=== PATIENT | female | born 1970 | race African-American/Black ===

== ENCOUNTER 2017-06-19 09:17 | Inpatient (IN) | payer MEDICARE, MEDICAID ==
[2017-06-19] MEDS ORDERED: Acetaminophen 325 MG TAB ONE ×2 (09:34→13:06)
--- NOTE | 2017-06-19 09:53 | RAD ---
PORTABLE CHEST ONE VIEW: Date: 06-19-17 Time: 9:44 a.m. History: Cough, shortness of breath. Nausea, vomiting, sore throat. FINDINGS: Comparison is made with exam of 08-28-16. The heart size is normal. The lungs are expanded without focal areas of consolidation, pneumothorax, or effusions. Nodularity is stable. IMPRESSION: No acute process. POS: [facility]
[2017-06-19 10:14] LABS: #Basophils 0.1 thou/uL (0.0-0.2); #Monocytes 1.5 thou/uL (0.11-0.59); #Neutrophils 9.2 thou/uL (1.40-6.50); %Basophils 0.8 % (0.0-1.0); %Eosinophils 0.2 % (0.0-10.0); %Lymphocytes 21.6 % (21.0-51.0); %Monocytes 10.6 % (0.0-10.0); %Neutrophils 66.9 % (42.0-75.0); Hemoglobin 14.4 g/dL (12.0-16.0); Mean Corpuscular Hemoglobin 28.5 pg (27.0-31.0); Mean Platelet Volume 11.4 fL (7.4-10.4); Platelet Count 158 thou/uL (130-400); RBC Distribution Width 12.9 % (11.5-14.5); Red Blood Cell (RBC) Count 5.04 mill/uL (4.20-5.40); White Blood Cell (WBC) Count 13.7 thou/uL (4.8-10.8)
[2017-06-19 10:15] LABS: BHCG - Serum Negative (NEGATIVE); Pregs Control Background? CLEAR/WHITE (CLR/WHITE); Pregs Control Bar Appear? YES (CONTROL BAR)
[2017-06-19 10:35] LABS: CKMB 0.3 ng/mL (0-6.6); Troponin I Less than 0.010 ng/mL (< 0.028)
[2017-06-19] MEDS ORDERED: Magnesium Sulfate 2 GM/NS 0.9% 50 ML BAG ONE (10:36)
[2017-06-19] MEDS ORDERED: Dexamethasone 10 MG/ML VIAL ONE (10:36)
[2017-06-19] MEDS ORDERED: Albuterol Sulfate 2.5 mg/0.5 ml Neb ONE (10:39)
[2017-06-19 10:40] LABS: ALT (SGPT) 11 U/L (8-55); AST (SGOT) 24 U/L (5-34); Albumin 4.1 g/dL (3.5-5.0); Alkaline Phosphatase 56 U/L (40-150); Anion Gap 14 mmol/L (10-20); BUN (Urea Nitrogen) 8 mg/dL (7.0-18.7); Bilirubin, Total 0.7 mg/dL (0.2-1.2); CK (CPK) 69 U/L (29-168); Calc. Creatinine Clearance 0 mL/min (70-130); Calcium 9.7 mg/dL (7.8-10.44); Carbon Dioxide 22 mmol/L (22-29); Chloride 101 mmol/L (98-107); Estimated GFR-MDRD Greater than 90; Glucose 92 mg/dL (70-105); Lipase Less than 4 U/L (8-78); Potassium 4.1 mmol/L (3.5-5.1); Protein, Total 10.1 g/dL (6.0-8.3); Sodium 133 mmol/L (136-145)
[2017-06-19 10:54] LABS: Acetaminophen Less than 6.0 mcg/mL (10.0-30.0); Alcohol Less than 10 mg/dL (Less than 10); Salicylate Less than 8.0 mg/dL (15.0-30.0)
[2017-06-19 10:58] LABS: CO2 Tension 33.7 mmHg (35.0-45.0); pH, Arterial 7.46 (7.35-7.45)
[2017-06-19 10:59] LABS: Actual Bicarbonate (HCO3a) 23.5 mEq/L (22-26); Base Excess (BEa) 0.4 mEq/L (0 (+/-) 2.5); Calcium, Ionized 1.2 mmol/L (1.12-1.30); O2 Tension (PaO2) 74.3 mmHg (80.0-100.0)
[2017-06-19 11:00] LABS: ALV-art Gradient 35.195 (0-20); Analyzer IN Cardio ER; Puncture Site L.B.
[2017-06-19 11:37] LABS: Bilirubin Small (Negative); Blood, Urine Negative (Negative); Clarity CLOUDY (Clear); Glucose, Urine (Dipstick) Negative (Negative); Leukocyte Moderate (Negative); Nitrite Negative (Negative); Protein, Urine (Dipstick) 30 mg/dL (Neg-Trace); Specific Gravity, Urine 1.019 (1.002-1.036)
[2017-06-19 11:46] LABS: Amphetamine Not Detected (NotDetected); Barbiturates Screen Not Detected (NotDetected); Benzodiazepine Screen Not Detected (NotDetected); Cocaine Metabolite Screen Detected (NotDetected); Medtox Control Line Valid? VALID (VALID); Medtox Reader # READER 1; Methadone Not Detected (NotDetected); Methamphetamine Not Detected (NotDetected); Opiate Screen Not Detected (NotDetected); Oxycodone Screen Not Detected (NotDetected); Phencyclidine (PCP) Not Detected (NotDetected); THC/Cannabinoid Screen Detected (NotDetected); Tricyclic Screen Not Detected (NotDetected)
[2017-06-19 11:49] LABS: Bacteria/HPF None Seen HPF (None Seen); RBC/HPF 0-3 HPF (0-3); Squamous Epithelial 0-3 HPF (0-3); WBC/HPF 0-3 HPF (0-3)
[2017-06-19 11:50] LABS: Hyaline Casts/LPF NONE SEEN LPF (0-3 Hyaline)
[2017-06-19 13:46] LABS: Troponin I Less than 0.010 ng/mL (< 0.028)
[2017-06-19] MEDS ORDERED: Meropenem 1 GM in Sterile Water 20 ML SLOW IVP SCH ×2 (14:00→16:00)
[2017-06-19] MEDS ORDERED: Meropenem 1 GM in Sodium Chloride 0.9% 100 ML IVPB SCH (14:19)
[2017-06-19] MEDS ORDERED: Ondansetron HCl/PF 4 MG/2 ML Vial IVP PRN (14:19)
[2017-06-19] MEDS ORDERED: Promethazine HCl 25 MG SUPP PR PRN (14:19)
[2017-06-19] MEDS ORDERED: Famotidine 20 MG TAB PO PRN (14:19)
[2017-06-19] MEDS ORDERED: Lorazepam 2 MG/ML VIAL SLOW IVP PRN (14:19)
[2017-06-19] MEDS ORDERED: hydrALAZINE 20 MG/ML VIAL SLOW IVP PRN (14:19)
[2017-06-19] MEDS ORDERED: Vancomycin HCl 1 GM in Premix Bag 1 BAG IVPB SCH (15:00)
--- NOTE | 2017-06-19 18:39 | HP ---
CHIEF COMPLAINT: Shortness breath, cough, nausea, vomiting, diarrhea, and some dysuria. HISTORY OF PRESENT ILLNESS: This is a 47-year-old pleasant lady who was apparently in usual state of health, came into the hospital because she was having nausea, vomiting, diarrhea, sore throat, short ness of breath and some high grade fever. In the ER, her temperature was 102.8. She is also HIV pos itive. Because of all this, she is going to be admitted to the hospital for further evaluation and t reatment of this flu test was negative. Her white count was 13.7. Patient denies any blood in the s tools, says that she has the diarrhea has about 4 or 5 times in a day and it is watery in nature. Th e patient does have some cough, but does not bringing up anything. She also has some shortness of br eath. Patient's UDS is also positive for cocaine. PAST MEDICAL HISTORY: Significant for HIV, pneumocystis pneumonia, asthma, hepatitis C, sickle cell trait, history of tuberculosis. PAST SURGICAL HISTORY: Hysterectomy and tubal ligation. PSYCHIATRIC HISTORY: Anxiety and depression. SOCIAL HISTORY: Patient drinks very occasionally still smokes 1 pack per day, abuses marijuana and c ocaine. FAMILY HISTORY: Negative for diabetes and hypertension. MEDICATIONS: Please see MAR. ALLERGIES: Include ASPIRIN, CLINDAMYCIN, CODEINE, PENICILLIN, ROCEPHIN, SULFA, THEOPHYLLINE. REVIEW OF SYSTEMS: Significant for nausea, vomiting, fever, chills, diarrhea, shortness of breath, s ome dysuria as well. No memory or mood changes. No neck pain, no headache, no eye pain. PHYSICAL EXAMINATION: VITAL SIGNS: Blood pressure is 109/85, respirations 20-24, temperature is 102.8, is tachycardic at 1 15. GENERAL: Patient is lying in bed, right now feeling a little better after she took some Tylenol. HEENT: Atraumatic, normocephalic. Pupils equally, round, react to light. Extraocular movements int act. Mucous membranes moist. NECK: Supple. No JVD. CHEST: Breath sounds heard, some coarse breath sounds at the bases, some diffuse wheezes heard. HEART: S1, S2 normal, tachycardic. ABDOMEN: Soft, some pain in the left lower quadrant. EXTREMITIES: No cyanosis, clubbing or edema. Distal pulses present. NEUROLOGIC: Alert, awake, oriented. No cranial deficits. No sensorimotor deficits. LABORATORY DATA: WBC count is 13.7, hemoglobin is 14. Chest x-ray was negative. UDS shows cocaine and marijuana. Flu A and B are negative. Urine WBC is negative, but leukocyte is positive and TSH i s 0.76. ASSESSMENT AND PLAN: 1. Possible sepsis secondary to pneumonia, definitely has SIRS with the high white count and high pu lse rate and high fever. We will empirically treat with vancomycin and meropenem. We will do blood cultures, urine cultures, and follow and consult Dr. Uriostegui and follow his recommendations. 2. Human immunodeficiency virus. We will follow Dr. Uriostegui' recommendations. 3. Diarrhea. We will do stool culture and do the need for. 4. Hepatitis C, appears to be stable. 5. History of sickle cell trait, stable. 6. Anxiety, stable. 7. History of cocaine use, marijuana use, tobacco use. Patient has been counseled. 8. Sequential compression devices for deep venous thrombosis prophylaxis. I will work with Dr. James mejias and further caring for the patient.
[2017-06-19 18:58] LABS: Troponin I Less than 0.010 ng/mL (< 0.028)
[2017-06-19 20:24] VITALS: BMI 27.2
--- NOTE | 2017-06-19 20:27 | CON ---
DATE OF CONSULTATION: 06/19/2017 REASON FOR CONSULTATION: Fever. HISTORY OF PRESENT ILLNESS: A 47-year-old patient who has a known history HIV seropositive for many years now. The last time she was at my clinic was in 2012. At that time, her CD4 cell count was 450 . She had not yet been started on antiretroviral therapy due to her personal preference and did not show up for followup visits since. She was admitted to the emergency room and reportedly has had a [facility] problems since April initially with diarrhea, abdominal pain, and some vomiting, which accordi ng to her own description occurs pretty much daily since April. The patient has been to a doctor in [place] reportedly told to consider the possibility of some form of gastritis, but no specific te sting was done. Over the past few days, she developed perception of fever, although she did not china ure it, some chills, and some respiratory symptoms including cough, some headaches, no neck pain, no chest pain, but she still persists with abdominal pain at which point she points to the flank and mid abdominal area. No genitourinary symptoms. No joint symptoms. No neurological symptoms. PAST MEDICAL HISTORY: HIV seropositive status, CD4 in mid 400s in 2012 with no followup since. Hist ory of pneumocystis pneumonia not sure about that. She would at least never diagnosed pneumocystis p neumonia in her at least up to 2012, history of asthma, hepatitis C, sickle cell trait. PAST SURGICAL HISTORY: Hysterectomy, tubal ligation. SOCIAL HISTORY: Current smoker, uses cocaine and marijuana, although she claims that last time she u sed cocaine was about 3 years ago. FAMILY HISTORY: Noncontributory. CURRENT MEDICATIONS: Pepcid, Apresoline, Ativan, meropenem, Zofran, Phenergan, vancomycin. ALLERGIES: Numerous medications that are associated with hives and other types of type 1 hypersensit ivity reaction, listed here includes: SULFA DRUGS, PENICILLIN, ROCEPHIN, CODEINE, CLINDAMYCIN, THEOP HYLLINE. PHYSICAL EXAMINATION: VITAL SIGNS: Temperature in the emergency room 102.8, O2 sat 96%, blood pressure 109/85, respiratory rate 36, and pulse 110. SKIN: Normal. There is left-sided lymphadenopathy. Left axillary measuring about 1.5 cm mobile. HEENT: Ocular movements are conjugate. Sclerae white. Pupils are equal. Conjunctivae normal. Michael al passages patent. Oral cavity with no abnormalities. NECK: Supple, no jugular venous distention. LUNGS: With faint expiratory wheezing both right and left hemithorax. HEART: S1, S2, regular rate. No S3, S4. ABDOMEN: Soft and no obvious tenderness. No masses. No evidence of ascites. No bladder distention . EXTREMITIES: No joint inflammatory activity. Pulses are 1+ in dorsalis pedis. NEUROLOGIC: Plantar responses are flexor moves all extremities equally. The patient was tearful dur ing the examination and appears to be depressed and still has pretty much the same profile that we cuello d observed in previous encounters. LABORATORY DATA: White cell count 13.7, hemoglobin 14, platelets 158 with 66% neutrophils and urinal ysis was essentially normal except for 30 protein, small bilirubin, toxicology with detected cannabin oids and cocaine metabolites. Influenza A and B were negative. Chest x-ray with no infiltrates. ASSESSMENT: Longstanding human immunodeficiency virus seropositive status with poor clinical follow up, never been on antiretroviral therapy. Total lymphocyte count above 3000, which probably makes it less likely that CD4 will be less than 200. Now presents with febrile illness, myalgias, some respi ratory symptoms plus this history of diarrhea and abdominal pain chronically. She has lymphadenopath y in the left axillary area. We will order CT abdomen and pelvis with contrast. Check respiratory v irus PCR in view of the influenza epidemic and CD4 cell count. Further opportunistic infection testi ng depending on results of CD4. Transition to Azactam and doxycycline. Discontinue current antimicr obials.
[2017-06-19] MEDS ORDERED: Vancomycin HCl 1 GM in Sodium Chloride 0.9% 250 ML 250 ML IVPB SCH (21:00)
[2017-06-19] MEDS: Aztreonam 2 GM in Sodium Chloride 0.9% 100 ML IVPB SCH (23:28)
[2017-06-20] MEDS: Doxycycline 100 MG CAP PO SCH ×3 (00:13→20:55)
[2017-06-20] MEDS: Oseltamivir 75 MG CAP PO SCH ×3 (00:13→20:55)
[2017-06-20 01:01] LABS: Troponin I Less than 0.010 ng/mL (< 0.028)
[2017-06-20] MEDS: HYDROcodone/Acetaminophen 5/325 mg Tablet PO PRN (01:05)
[2017-06-20] MEDS: Sodium Chloride 0.9% 1,000 ML IV SCH ×3 (03:07→21:00)
[2017-06-20] MEDS: Albuterol Sulfate 2.5 mg/3 ml Neb NEB PRN ×3 (05:30→21:06)
[2017-06-20 06:19] LABS: #Lymphocytes 2.7 thou/uL (1.20-3.40); #Monocytes 1.1 thou/uL (0.11-0.59); %Basophils 0.4 % (0.0-1.0); %Eosinophils 0.2 % (0.0-10.0); %Lymphocytes 22.6 % (21.0-51.0); %Monocytes 9.2 % (0.0-10.0); %Neutrophils 67.7 % (42.0-75.0); Hemoglobin 13.4 g/dL (12.0-16.0); Mean Corpuscular HGB CONC 33.4 g/dL (32.0-36.0); Mean Corpuscular Hemoglobin 28.3 pg (27.0-31.0); Mean Corpuscular Volume 84.7 fl (81.0-99.0); Mean Platelet Volume 11.4 fL (7.4-10.4); Platelet Count 139 thou/uL (130-400); RBC Distribution Width 12.8 % (11.5-14.5); Red Blood Cell (RBC) Count 4.75 mill/uL (4.20-5.40); White Blood Cell (WBC) Count 11.8 thou/uL (4.8-10.8)
[2017-06-20 06:49] LABS: ALT (SGPT) 10 U/L (8-55); AST (SGOT) 17 U/L (5-34); Albumin 3.6 g/dL (3.5-5.0); Alkaline Phosphatase 50 U/L (40-150); Anion Gap 11 mmol/L (10-20); BUN (Urea Nitrogen) 11 mg/dL (7.0-18.7); Bilirubin, Total 0.4 mg/dL (0.2-1.2); CK (CPK) 124 U/L (29-168); Calc. Creatinine Clearance 132 mL/min (70-130); Calcium 9.2 mg/dL (7.8-10.44); Carbon Dioxide 23 mmol/L (22-29); Chloride 106 mmol/L (98-107); Estimated GFR-MDRD Greater than 90; Globulin 4.8 g/dL (2.4-3.5); Glucose 112 mg/dL (70-105); Potassium 3.5 mmol/L (3.5-5.1); Protein, Total 8.4 g/dL (6.0-8.3); Sodium 136 mmol/L (136-145)
[2017-06-20] MEDS: Aztreonam 2 GM in Sodium Chloride 0.9% 100 ML IVPB SCH ×2 (11:05→20:55)
--- NOTE | 2017-06-20 13:36 | CT ---
ABDOMEN AND PELVIS CT WITH AND WITHOUT CONTRAST: COMPARISON: 05/04/17. HISTORY: Chronic abdominal pain, adenopathy. FINDINGS: Precontrast imaging reveals no radiopaque urolithiasis or discrete cholelithiasis. There is no evide nce of mechanical bowel obstruction. There is mild retained fecal material throughout the colon. No evidence of focal hepatic or splenic lesion. Kidneys, adrenal glands, and the pancreas are grossly unremarkable. There is no free air. Prominent volume of each adnexa with associated cyst formation bilaterally, a dominant of which is present within the left adnexa, which has decreased in size measu ring approximately 4.5 cm in diameter. Redemonstration of bilateral inguinal adenopathy. No acute o sseous abnormality. No additional significant interval change. IMPRESSION: 1. Redemonstration of bilateral inguinal adenopathy. 2. Redemonstration of bilateral prominence of the adnexa with cyst formation, the dominant of which on the left, has reduced in volume. As was previously recommended, FNA may prove useful for further analysis of the patient's persistent bilateral inguinal adenopathy. POS: [facility]
--- NOTE | 2017-06-20 14:17 | PDOC.PN ---
- Subjective Encounter Start Date: 06/20/17 Encounter Start Time: 14:15 c/o abd pain no n'/v no f/c no sob - Objective MAR Reviewed: Yes Vital Signs & Weight: Vital Signs (12 hours) Temp Pulse Resp BP Pulse Ox 06/20/17 11:37 97 06/20/17 11:35 79 28 H 97 06/20/17 05:30 78 16 98 06/20/17 04:00 97.9 F 71 21 H 123/83 99 Weight Weight 184 lb 6.4 oz I&O: 06/19/17 06/20/17 06/21/17 06:59 06:59 06:59 Intake Total 360 Balance 360 Result Diagrams: 06/20/17 05:55 06/20/17 05:55 Phys Exam - Physical Examination Constitutional: NAD HEENT: PERRLA Neck: no JVD Respiratory: no wheezing Cardiovascular: no significant murmur Gastrointestinal: soft tender in lt quadrant Musculoskeletal: pulses present Neurological: moves all 4 limbs Psychiatric: A&O x 3 Dx/Plan (1) Abdominal pain Code(s): R10.9 - UNSPECIFIED ABDOMINAL PAIN Status: Acute (2) Adnexal cyst Code(s): N94.9 - UNSP COND ASSOC W FEMALE GENITAL ORGANS AND MENSTRUAL CYCLE Status: Acute (3) Fever Code(s): R50.9 - FEVER, UNSPECIFIED Status: Acute (4) Diarrhea Code(s): R19.7 - DIARRHEA, UNSPECIFIED Status: Acute (5) SIRS (systemic inflammatory response syndrome) Code(s): R65.10 - SIRS OF NON-INFECTIOUS ORIGIN W/O ACUTE ORGAN DYSFUNCTION Status: Acute (6) HIV (human immunodeficiency virus infection) Status: Chronic (7) Hepatitis C, chronic Code(s): B18.2 - CHRONIC VIRAL HEPATITIS C Status: Chronic (8) Noncompliance Code(s): Z91.19 - PATIENT'S NONCOMPLIANCE W OTH MEDICAL TREATMENT AND REGIMEN Status: Chronic (9) Polysubstance abuse Code(s): F19.10 - OTHER PSYCHOACTIVE SUBSTANCE ABUSE, UNCOMPLICATED Status: Chronic - Plan * cont current abx * f/u dr palma plan * d/g to medical
[2017-06-20] MEDS: Benzonatate 100 MG CAP PO PRN (20:57)
[2017-06-21] MEDS: Albuterol Sulfate 2.5 mg/3 ml Neb NEB PRN ×4 (01:27→13:30)
[2017-06-21 05:51] LABS: #Basophils 0.1 thou/uL (0.0-0.2); #Lymphocytes 2.8 thou/uL (1.20-3.40); #Monocytes 0.9 thou/uL (0.11-0.59); #Neutrophils 2.7 thou/uL (1.40-6.50); %Basophils 0.8 % (0.0-1.0); %Eosinophils 0.2 % (0.0-10.0); %Lymphocytes 43.4 % (21.0-51.0); %Monocytes 13.8 % (0.0-10.0); %Neutrophils 41.8 % (42.0-75.0); Hemoglobin 11.7 g/dL (12.0-16.0); Mean Corpuscular HGB CONC 33.6 g/dL (32.0-36.0); Mean Corpuscular Hemoglobin 28.8 pg (27.0-31.0); Mean Corpuscular Volume 85.6 fl (81.0-99.0); Mean Platelet Volume 11.8 fL (7.4-10.4); Platelet Count 135 thou/uL (130-400); RBC Distribution Width 12.9 % (11.5-14.5); Red Blood Cell (RBC) Count 4.07 mill/uL (4.20-5.40); White Blood Cell (WBC) Count 6.4 thou/uL (4.8-10.8)
[2017-06-21 06:18] LABS: ALT (SGPT) 11 U/L (8-55); AST (SGOT) 17 U/L (5-34); Albumin 2.9 g/dL (3.5-5.0); Alkaline Phosphatase 43 U/L (40-150); Anion Gap 9 mmol/L (10-20); BUN (Urea Nitrogen) 8 mg/dL (7.0-18.7); Bilirubin, Total 0.2 mg/dL (0.2-1.2); CK (CPK) 89 U/L (29-168); Calc. Creatinine Clearance 127 mL/min (70-130); Calcium 8.5 mg/dL (7.8-10.44); Carbon Dioxide 25 mmol/L (22-29); Chloride 109 mmol/L (98-107); Estimated GFR-MDRD Greater than 90; Globulin 4.2 g/dL (2.4-3.5); Glucose 110 mg/dL (70-105); Potassium 3.4 mmol/L (3.5-5.1); Protein, Total 7.1 g/dL (6.0-8.3); Sodium 140 mmol/L (136-145)
[2017-06-21] MEDS: Aztreonam 2 GM in Sodium Chloride 0.9% 100 ML IVPB SCH ×2 (08:48→20:00)
[2017-06-21] MEDS: Sodium Chloride 0.9% 1,000 ML IV SCH (08:49)
[2017-06-21] MEDS: Doxycycline 100 MG CAP PO SCH ×2 (08:59→20:00)
[2017-06-21] MEDS: Oseltamivir 75 MG CAP PO SCH ×2 (08:59→20:00)
[2017-06-21] MEDS: Benzonatate 100 MG CAP PO PRN ×2 (09:22→14:37)
--- NOTE | 2017-06-21 09:31 | PDOC.PN ---
- Subjective Encounter Start Date: 06/21/17 Encounter Start Time: 09:29 feels much better no n/v no f/c abd pain much better - Objective Vital Signs & Weight: Vital Signs (12 hours) Temp Pulse Resp BP Pulse Ox 06/21/17 08:00 99 F 68 18 109/73 98 06/21/17 06:12 75 14 97 06/21/17 04:00 98.4 F 75 20 100/63 98 06/21/17 01:27 69 24 H 100 06/21/17 00:08 98.5 F 74 20 90/54 L 98 Weight Weight 184 lb 6.4 oz I&O: 06/20/17 06/21/17 06/22/17 06:59 06:59 06:59 Intake Total 360 Balance 360 Result Diagrams: 06/21/17 04:09 06/21/17 04:09 Phys Exam - Physical Examination Constitutional: NAD HEENT: PERRLA Neck: no JVD Respiratory: no wheezing Cardiovascular: no significant murmur mild tenderness Musculoskeletal: pulses present Neurological: moves all 4 limbs Psychiatric: A&O x 3 Dx/Plan (1) Abdominal pain Code(s): R10.9 - UNSPECIFIED ABDOMINAL PAIN Status: Acute Comment: ct shows lt adnexa prominence with cyst out pt f/u with headstart teacher (2) Adnexal cyst Code(s): N94.9 - UNSP COND ASSOC W FEMALE GENITAL ORGANS AND MENSTRUAL CYCLE Status: Acute (3) Fever Code(s): R50.9 - FEVER, UNSPECIFIED Status: Resolved (4) Diarrhea Code(s): R19.7 - DIARRHEA, UNSPECIFIED Status: Resolved (5) SIRS (systemic inflammatory response syndrome) Code(s): R65.10 - SIRS OF NON-INFECTIOUS ORIGIN W/O ACUTE ORGAN DYSFUNCTION Status: Resolved (6) HIV (human immunodeficiency virus infection) Status: Chronic (7) Hepatitis C, chronic Code(s): B18.2 - CHRONIC VIRAL HEPATITIS C Status: Chronic (8) Noncompliance Code(s): Z91.19 - PATIENT'S NONCOMPLIANCE W OTH MEDICAL TREATMENT AND REGIMEN Status: Chronic (9) Polysubstance abuse Code(s): F19.10 - OTHER PSYCHOACTIVE SUBSTANCE ABUSE, UNCOMPLICATED Status: Chronic - Plan * cont current mx * f/u dr palma plan
[2017-06-21 10:16] LABS: Anion Gap 10 mmol/L (10-20); BUN (Urea Nitrogen) 8 mg/dL (7.0-18.7); Calc. Creatinine Clearance 136 mL/min (70-130); Calcium 8.6 mg/dL (7.8-10.44); Carbon Dioxide 24 mmol/L (22-29); Chloride 107 mmol/L (98-107); Estimated GFR-MDRD Greater than 90; Glucose 107 mg/dL (70-105); Potassium 3.1 mmol/L (3.5-5.1); Sodium 138 mmol/L (136-145)
[2017-06-21] MEDS: HYDROcodone/Acetaminophen 5/325 mg Tablet PO PRN (18:12)
[2017-06-21] MEDS: Calcium Carbonate 500 MG ChewTAB PO PRN (21:04)
[2017-06-21 22:08] LABS: LOG10 HIV-1 RNA 3.657 (.)
[2017-06-22] MEDS: Albuterol Sulfate 2.5 mg/3 ml Neb NEB PRN ×3 (00:26→16:29)
[2017-06-22] MEDS: HYDROcodone/Acetaminophen 5/325 mg Tablet PO PRN ×3 (03:00→15:45)
[2017-06-22] MEDS: Sodium Chloride 0.9% 1,000 ML IV SCH (03:01)
[2017-06-22 04:40] LABS: #Lymphocytes 2.4 thou/uL (1.20-3.40); #Monocytes 0.8 thou/uL (0.11-0.59); %Basophils 0.9 % (0.0-1.0); %Eosinophils 0.1 % (0.0-10.0); %Lymphocytes 46.2 % (21.0-51.0); %Monocytes 14.9 % (0.0-10.0); Hemoglobin 11.9 g/dL (12.0-16.0); Mean Corpuscular HGB CONC 33.1 g/dL (32.0-36.0); Mean Corpuscular Hemoglobin 28.7 pg (27.0-31.0); Mean Corpuscular Volume 86.5 fl (81.0-99.0); Mean Platelet Volume 10.7 fL (7.4-10.4); Platelet Count 151 thou/uL (130-400); RBC Distribution Width 12.9 % (11.5-14.5); Red Blood Cell (RBC) Count 4.14 mill/uL (4.20-5.40); White Blood Cell (WBC) Count 5.2 thou/uL (4.8-10.8)
[2017-06-22 04:44] LABS: ALT (SGPT) 10 U/L (8-55); AST (SGOT) 15 U/L (5-34); Albumin 2.8 g/dL (3.5-5.0); Alkaline Phosphatase 44 U/L (40-150); Anion Gap 8 mmol/L (10-20); BUN (Urea Nitrogen) 9 mg/dL (7.0-18.7); Bilirubin, Total 0.3 mg/dL (0.2-1.2); Calc. Creatinine Clearance 129 mL/min (70-130); Calcium 8.6 mg/dL (7.8-10.44); Carbon Dioxide 26 mmol/L (22-29); Chloride 107 mmol/L (98-107); Estimated GFR-MDRD Greater than 90; Globulin 3.8 g/dL (2.4-3.5); Glucose 117 mg/dL (70-105); Potassium 3.8 mmol/L (3.5-5.1); Protein, Total 6.6 g/dL (6.0-8.3); Sodium 137 mmol/L (136-145)
[2017-06-22] MEDS: Calcium Carbonate 500 MG ChewTAB PO PRN (08:35)
[2017-06-22] MEDS: Aztreonam 2 GM in Sodium Chloride 0.9% 100 ML IVPB SCH (10:38)
[2017-06-22] MEDS: Oseltamivir 75 MG CAP PO SCH ×2 (10:38→20:22)
[2017-06-22] MEDS: Doxycycline 100 MG CAP PO SCH (11:43)
--- NOTE | 2017-06-22 12:43 | PDOC.PN ---
- Subjective Encounter Start Date: 06/22/17 Encounter Start Time: 12:42 Patient seen and examined. No new complaints. No overnight events - Objective MAR Reviewed: Yes Vital Signs & Weight: Vital Signs (12 hours) Temp Pulse Resp BP Pulse Ox 06/22/17 08:00 98.1 F 65 20 06/22/17 07:59 98.1 F 65 20 93/70 100 06/22/17 07:58 86 12 Weight Weight 184 lb 6.4 oz I&O: 06/21/17 06/22/17 06/23/17 06:59 06:59 06:59 Intake Total 360 2450 Balance 360 2450 Result Diagrams: 06/22/17 03:24 06/22/17 03:24 Phys Exam - Physical Examination Constitutional: NAD HEENT: PERRLA Respiratory: no wheezing Cardiovascular: no significant murmur mild tenderness in lt quadrant Musculoskeletal: pulses present Neurological: moves all 4 limbs Psychiatric: A&O x 3 Dx/Plan (1) Abdominal pain Code(s): R10.9 - UNSPECIFIED ABDOMINAL PAIN Status: Acute Comment: ct shows lt adnexa prominence with cyst out pt f/u with assistant chief nursing officer (2) Adnexal cyst Code(s): N94.9 - UNSP COND ASSOC W FEMALE GENITAL ORGANS AND MENSTRUAL CYCLE Status: Acute (3) Fever Code(s): R50.9 - FEVER, UNSPECIFIED Status: Resolved (4) Diarrhea Code(s): R19.7 - DIARRHEA, UNSPECIFIED Status: Resolved (5) SIRS (systemic inflammatory response syndrome) Code(s): R65.10 - SIRS OF NON-INFECTIOUS ORIGIN W/O ACUTE ORGAN DYSFUNCTION Status: Resolved (6) HIV (human immunodeficiency virus infection) Status: Chronic (7) Hepatitis C, chronic Code(s): B18.2 - CHRONIC VIRAL HEPATITIS C Status: Chronic (8) Noncompliance Code(s): Z91.19 - PATIENT'S NONCOMPLIANCE W OTH MEDICAL TREATMENT AND REGIMEN Status: Chronic (9) Polysubstance abuse Code(s): F19.10 - OTHER PSYCHOACTIVE SUBSTANCE ABUSE, UNCOMPLICATED Status: Chronic - Plan * doing better * f/u dr palma plan
[2017-06-23] MEDS: Albuterol Sulfate 2.5 mg/3 ml Neb NEB PRN (01:09)
[2017-06-23] MEDS: HYDROcodone/Acetaminophen 5/325 mg Tablet PO PRN ×2 (01:19→08:07)
[2017-06-23 05:28] LABS: Hemoglobin 11.8 g/dL (12.0-16.0); Lymphocytes 46 % (21-51); MDiff Complete? YES; Mean Corpuscular HGB CONC 33.1 g/dL (32.0-36.0); Mean Corpuscular Hemoglobin 28.4 pg (27.0-31.0); Mean Corpuscular Volume 85.7 fl (81.0-99.0); Mean Platelet Volume 10.3 fL (7.4-10.4); Monocytes 14 % (0-10); Neutrophil 40 % (42-75); Platelet Count 170 thou/uL (130-400); RBC Distribution Width 12.8 % (11.5-14.5); Red Blood Cell (RBC) Count 4.17 mill/uL (4.20-5.40); White Blood Cell (WBC) Count 4.4 thou/uL (4.8-10.8)
[2017-06-23] MEDS: Oseltamivir 75 MG CAP PO SCH (08:00)
[2017-06-23 09:06] VITALS: BP 111/74; TEMP 98.7
--- NOTE | 2017-06-23 11:10 | PDOC.PN ---
- Subjective Encounter Start Date: 06/23/17 Encounter Start Time: 11:09 Patient seen and examined. No new complaints. No overnight events - Objective MAR Reviewed: Yes Vital Signs & Weight: Vital Signs (12 hours) Temp Pulse Resp BP Pulse Ox 06/23/17 08:00 98.7 F 65 20 111/74 96 06/23/17 01:09 85 12 95 Weight Weight 184 lb 6.4 oz I&O: 06/22/17 06/23/17 06/24/17 06:59 06:59 06:59 Intake Total 2450 Balance 2450 Result Diagrams: 06/23/17 03:36 06/22/17 03:24 Phys Exam - Physical Examination Constitutional: NAD HEENT: PERRLA Neck: no JVD Respiratory: no wheezing Cardiovascular: no significant murmur Gastrointestinal: non-tender Musculoskeletal: pulses present Neurological: moves all 4 limbs Psychiatric: A&O x 3 Dx/Plan (1) Abdominal pain Code(s): R10.9 - UNSPECIFIED ABDOMINAL PAIN Status: Acute Comment: ct shows lt adnexa prominence with cyst out pt f/u with blue split trimmer (2) Adnexal cyst Code(s): N94.9 - UNSP COND ASSOC W FEMALE GENITAL ORGANS AND MENSTRUAL CYCLE Status: Acute (3) Fever Code(s): R50.9 - FEVER, UNSPECIFIED Status: Resolved (4) Diarrhea Code(s): R19.7 - DIARRHEA, UNSPECIFIED Status: Resolved (5) SIRS (systemic inflammatory response syndrome) Code(s): R65.10 - SIRS OF NON-INFECTIOUS ORIGIN W/O ACUTE ORGAN DYSFUNCTION Status: Resolved (6) HIV (human immunodeficiency virus infection) Status: Chronic (7) Hepatitis C, chronic Code(s): B18.2 - CHRONIC VIRAL HEPATITIS C Status: Chronic (8) Noncompliance Code(s): Z91.19 - PATIENT'S NONCOMPLIANCE W OTH MEDICAL TREATMENT AND REGIMEN Status: Chronic (9) Polysubstance abuse Code(s): F19.10 - OTHER PSYCHOACTIVE SUBSTANCE ABUSE, UNCOMPLICATED Status: Chronic - Plan * doing good * d/c home with out pt f/u with dr palma
[2017-06-23] MEDS ORDERED: Albuterol Sulfate 2.5 mg/3 ml Neb NEB SCH (14:30)
--- NOTE | 2017-06-23 20:40 | DIS ---
DATE OF ADMISSION: 06/19/2017 DATE OF DISCHARGE: 06/23/2017 DIAGNOSES ON DISCHARGE: 1. Systemic inflammatory response syndrome, resolved. 2. Human immunodeficiency virus, stable. 3. Hepatitis C, stable. 4. Polysubstance abuse with cocaine. The patient has been counseled. 5. Fever, resolved. 6. Diarrhea, resolved. 7. Hepatitis C, stable. 8. Abdominal pain secondary to left adnexal cyst, stable. AUTOMOTIVE SERVICE DIRECTOR ON THE CASE: Marquis Uriostegui MD DISCHARGE MEDICATIONS: Same as admit medications. BRIEF HOSPITAL COURSE: 47-year-old pleasant lady came to the hospital with shortness of breath, coug h, nausea, vomiting, diarrhea, and dysuria. The patient was admitted. She was checked for the flu, which was negative. Stool studies, urine studies, blood cultures, everything were negative. Dr. Kamaljit hartley was consulted. He recommended that we treat her empirically with broad-spectrum antibiotics. Aft er he evaluated her, he deescalated the antibiotic treatment and then once she started improving, we stopped the antibiotics. We however continued to treat her with Tamiflu, even though the flu test wa s negative as there is only 60% chance of the test being positive. She improved with this treatment. Right now, she is medically stable to be discharged with outpatient followup with Dr. Uriostegui. She w as asked to come back to the emergency room in case symptoms recur. Total time for this discharge took 35 minutes.
[2017-06-24 12:11] LABS: %CD4 (Helper/Inducer) 33.4 % (30.8-58.5); Absolute CD4 802 /uL (359-1519); Lymphocytes/Gated Cell Count 2.4 x10E3/uL (0.7-3.1); Total Lymphocyte 42 % (Not Estab.); WBC Total Count 5.8 x10E3/uL (3.4-10.8)
--- NOTE | 2017-07-08 07:21 | PQF ---
SUMAYA MORRIS SHIVAMALEXAEARL [id number] CLINICAL DOCUMENTATION CLARIFICATION FORM: POST DISCHARGE Addendum to original discharge summary date: ___pt had sirs probably due to viral syndrome Late entry note date: __ DATE: 07/08/2017 ATTN: Dr. Ludwig Please exercise your independent, professional judgment in responding to the clarification form. Clinical indicators are provided on the bottom of this form for your review In your professional opinion, please specify the cause of patient's SIRS: Please check appropriate box(s): [ ] Sepsis [ ] SIRS due to Non-infectious process (please specify cause) [ ] With organ dysfunction [ ] Without organ dysfunction [ # ] SIRS due to infectious process (please specify) [ ] Other diagnosis (please specify) [ ] Unable to determine In addition, please specify: Present on Admission (POA): [ ] Yes [ ] No [ ] Unable to determine For continuity of documentation, please document condition throughout progress notes and discharge summary. Thank You. CLINICAL INDICATORS - SIGNS / SYMPTOMS / LABS :(per admission history and physician) Fever of 102.8.. Heart Rate 115. Respiratory Rate 20-24. White count 13.7. RISK FACTORS: HIV positive. Smoker. Continued to treat with Tamiflu with improvement of symptoms (flu test was negative). TREATMENT: IV Fluids Initial treatment with IV Vancomycin and Meropenem. Tamiflu. (This form is maintained as a part of the permanent medical record) 2014 [employer]. All Rights Reserved [place] [email or web address] [phone] [email or web address]
--- NOTE | 2017-07-13 15:14 | EKG ---
Test Reason : SOB Blood Pressure : / mmHG Vent. Rate : 116 BPM Atrial Rate : 116 BPM P-R Int : 140 ms QRS Dur : 070 ms QT Int : 312 ms P-R-T Axes : 077 095 052 degrees QTc Int : 433 ms Sinus tachycardia Possible Left atrial enlargement Rightward axis Borderline ECG Confirmed by MAXWELL RUSH, COLIN ([id number]), newspaper editor managing ANDRZEJ GALLEGOS ([id number]) on 07/13/2017 3:14:04 PM Referred By: Confirmed By:COLIN ARREOLA MD
== END 2017-06-23 11:50 | disposition home or self-care (01) | DRG 871 ==
LOC: ERS 09:17 → ERHOLD 11:42 → 2NO 17:46 → T4-A 06-20 18:14
PROVIDERS: ADMIT Internal Medicine; ATTEND Internal Medicine
DX: R65.10 Systemic inflammatory response syndrome (SIRS) of non-infectious origin without acute organ dysfunction (principal); B20 Human immunodeficiency virus [HIV] disease; R19.7 Diarrhea, unspecified; D57.3 Sickle-cell trait; F41.9 Anxiety disorder, unspecified; F32.9 Major depressive disorder, single episode, unspecified; N94.9 Unspecified condition associated with female genital organs and menstrual cycle; B18.2 Chronic viral hepatitis C; F19.10 Other psychoactive substance abuse, uncomplicated; F17.210 Nicotine dependence, cigarettes, uncomplicated; F14.10 Cocaine abuse, uncomplicated; F12.10 Cannabis abuse, uncomplicated; Z91.19 Patient's noncompliance with other medical treatment and regimen; Z86.11 Personal history of tuberculosis; Z88.6 Allergy status to analgesic agent; Z88.1 Allergy status to other antibiotic agents; Z88.5 Allergy status to narcotic agent; Z88.0 Allergy status to penicillin; Z88.2 Allergy status to sulfonamides; Z88.8 Allergy status to other drugs, medicaments and biological substances
CPT/HCPCS: 36415; 71045; 74178; 80053; 80306; 80307; 81003; 81015; 82550; 82553; 82805; 83605; 83690; 84443; 84484; 84703; 85025; 85048; 86361; 87040; 87045; 87046; 87081; 87086; 87324; 87449; 87536; 87804; 87899; 93005; 94640; 94644; 96361; 96365; 96366; 96367; 96375; A4216; J1100; J1956; J2185; J2405; J3475; J3490; J7050; J7611; J7620